=== PATIENT | female | born 1995 | race Two or more races ===

== ENCOUNTER 2018-03-07 02:49 | Emergency (ER) | payer SELFPAY ==
[2018-03-07] MEDS ORDERED: ONDANSETRON 4 MG/2 ML VIAL IVP ONE (03:00)
[2018-03-07] MEDS ORDERED: NS(*) 0.9% 1000 ML BAG 1,000 ML IV ONE (03:00)
--- NOTE | 2018-03-07 03:13 | ER Report ---
History and Physical Time Seen By MD: 02:56 Hx. of Stated Complaint: PT FOUND PASSED OUT AT [employer]. SENT TO ER VIA EMS. HPI/ROS CHIEF COMPLAINT: Alcohol intoxication, found passed out at [employer] HISTORY OF PRESENT ILLNESS: 23-year-old female who was dancing and then called for safe ride. She promptly passed out. She is brought in by EMS covered in emesis. REVIEW OF SYSTEMS: Respiratory: No cough, no dyspnea. Cardiovascular: No chest pain, no palpitations. Gastrointestinal: No vomiting, no abdominal pain. Musculoskeletal: No back pain. Allergies: Coded Allergies: UNABLE TO OBTAIN (Unverified , 03/07/18) Home Meds Unable to Obtain Active Prescriptions or Reported Meds Unable To Obtain Past Medical: Unable to Obtain/Update Constitutional Vital Sign - Last 24 Hours 03/07/18 03/07/18 02:56 03:21 Temp 98.3 Pulse 89 85 Resp 14 16 B/P (MAP) 104/61 118/72 (87) Pulse Ox 93 95 O2 Delivery Room Air Room Air Physical Exam General Appearance: The patient is alert, has no immediate need for airway protection and no current signs of toxicity. Covered in emesis. EtOH on breath , responsive to painful stimulus, palpation of the head and neck reveal no evidence of head trauma. Eyes: Pupils equal and round no injection. Respiratory: Chest is non tender, lungs are clear to auscultation. Cardiac: regular rate and rhythm Gastrointestinal: Abdomen is soft and non tender, no masses, bowel sounds normal. Musculoskeletal: Neck: Neck is supple and non tender. Extremities have full range of motion and are non tender. Skin: No rashes or lesions. DIFFERENTIAL DIAGNOSIS: After history and physical exam differential diagnosis was considered for altered mental status including but not limited to hypoglycemia, infectious process, electrolyte abnormality, head injury and intoxicants. Medical Decision Making Data Points Laboratory Hematology Test 03/07/18 02:45 Serum Alcohol 225 mg/dl Chemistry Test 03/07/18 02:45 Serum Alcohol 225 mg/dl Toxicology Test 03/07/18 02:45 Serum Alcohol 225 mg/dl ED Course/Re-evaluation Clinical Indication for ER IV: Hydration, IV Access ED Course Patient was admitted by EMS to an examination room. H&P was done. The differential diagnoses was considered. On clinical examination, patient appears grossly intoxicated. She is covered in emesis and alcohol. She is cleaned out. Her pupils are reactive. She has an intact gag reflex protecting her airway. She is treated with IV fluids, Zofran 4 mg. Alcohol returns at 225. After observation an hour and a half. Patient's alert and responsive. She is medically cleared for discharge to intermediate. Decision to Disposition Date: Mar 07, 2018 Decision to Disposition Time: 03:08 Depart Departure Latest Vital Signs Vital Signs Date Time Temp Pulse Resp B/P (MAP) Pulse Ox O2 Delivery O2 Flow Rate FiO2 03/07/18 03:21 85 16 118/72 (87) 95 Room Air 03/07/18 02:56 98.3 Impression: Primary Impression: Alcohol intoxication Additional Impression: Vomiting Condition: Improved [facility] New Scripts Unable to Obtain Active Prescriptions or Reported Meds Patient Instructions: Alcohol Intoxication (ED) Additional Instructions: Medically cleared for intermediate admission Problem Qualifiers Primary Impression: Alcohol intoxication Complication of substance-induced condition: uncomplicated Qualified Codes: F10.920 - Alcohol use, unspecified with intoxication, uncomplicated Additional Impression: Vomiting Vomiting type: unspecified Vomiting Intractability: unspecified Nausea presence: unspecified Qualified Codes: R11.10 - Vomiting, unspecified KATHIE BLANKENSHIP DO Mar 07, 2018 03:13
[2018-03-07 03:21] VITALS: BP 118/72
== END 2018-03-07 03:22 ==
LOC: ER 02:57
DX: F10.920 Alcohol use, unspecified with intoxication, uncomplicated (principal); R11.10 Vomiting, unspecified
CPT/HCPCS: 80320; 96374; 99284; J2405; J7030

== ENCOUNTER → 2018-03-07 | Outpatient (CLI) | payer SELFPAY | LOC: AMB 02:14 | PROVIDERS: ATTEND Nurse Practitioner | DX: F10.129 Alcohol abuse with intoxication, unspecified (principal) | CPT/HCPCS: A0425; A0429 ==